=== PATIENT | female | born 1995 | race African-American/Black ===

== ENCOUNTER 2017-11-06 05:36 | Day surgery (SDC) | payer MEDICAID ==
[2017-11-06 06:06] LABS: HEMATOCRIT 39.4 % (36.0-47.0); HEMOGLOBIN 13.2 g/dL (12.0-15.5); HGB HCT DIFFERENCE 0.2; MEAN CORPUSCULAR HEMOGLOBIN 27.9 pg (27.0-33.4); MEAN CORPUSCULAR HGB CONC 33.5 g/dL (32.0-36.0); MEAN CORPUSCULAR VOLUME 83 fl (80-97); RED BLOOD COUNT 4.72 10^6/uL (3.72-5.28); RED CELL DISTRIBUTION WIDTH 14.8 % (11.5-14.0); WHITE BLOOD COUNT 6.5 10^3/uL (4.0-10.5)
[2017-11-06 06:22] LABS: APPEARANCE,URINE SLIGHTLY-CLOUDY; BILIRUBIN,URINE NEGATIVE (NEGATIVE); GLUCOSE, URINE NEGATIVE (NEGATIVE); KETONES,URINE TRACE mg/dL (NEGATIVE); LEUKOCYTE ESTERASE,URINE TRACE (NEGATIVE); NITRITE,URINE NEGATIVE (NEGATIVE); PROTEIN,URINE 30 mg/dL (NEGATIVE); UROBILINOGEN,URINE NEGATIVE mg/dL (<2.0)
[2017-11-06] MEDS ORDERED: FENTANYL CITRATE INJ/PF 100 MCG/2 ML AMPUL ONE (06:46)
[2017-11-06] MEDS ORDERED: ONDANSETRON HCL INJ/PF 4 MG/2 ML SDV ONE (06:47)
[2017-11-06] MEDS ORDERED: MIDAZOLAM 2 MG/2 ML INJ ONE (06:47)
[2017-11-06] MEDS ORDERED: PROPOFOL INJ 200 MG/20 ML VIAL IV ONE (06:48)
[2017-11-06] MEDS ORDERED: FENTANYL CITRATE INJ/PF 100 MCG/2 ML AMPUL IV PRN ×3 (08:00)
[2017-11-06] MEDS ORDERED: MORPHINE SULFATE 10 MG/ML INJ IV PRN (08:00)
[2017-11-06] MEDS ORDERED: PROMETHAZINE HCL INJ 25 MG/1 ML VIAL IV PRN (08:00)
[2017-11-06] MEDS ORDERED: DIPHENHYDRAMINE HCL 50 MG/ML VIAL IV PRN (08:00)
--- NOTE | 2017-11-06 08:11 | Operative Report ---
Operative Report DATE OF SURGERY: 11/06/17 PREOPERATIVE DIAGNOSIS: Missed AB POSTOPERATIVE DIAGNOSIS: Same OPERATION: Suction D&C SURGEON: CLAUDINE QUIÑONEZ ANESTHESIA: GA TISSUE REMOVED OR ALTERED: Uterine contents COMPLICATIONS: None ESTIMATED BLOOD LOSS: 20 cc INTRAOPERATIVE FINDINGS: Sound 10 cm PROCEDURE: Patient requests a suction D&C. She was taken to the OR and placed in supine position. General anesthesia was induced. She is placed in dorsolithotomy position using Macario stirrups. Her abdomen perineum and vagina were prepared and draped in sterile fashion. Her bladder was drained with a red rubber catheter. A weighted speculum was placed in the anterior lip of the cervix was grasped with a tenaculum. Uterus sounded 10 cm before and 8 cm after the case. The cervix was gently dilated. A size 10 suction curette was used to evacuate the uterine contents. Exploration of the uterus with the sharp curette revealed no retained products. All instruments were removed she is placed back in supine position taken recovery room in stable condition. End of dictation
[2017-11-06] MEDS ORDERED: KETOROLAC TROMETHAMINE INJ/PF 30 MG/1 ML SDV IV PRN (08:43)
[2017-11-06 09:57] VITALS: BP 124/69
[2017-11-06] MEDS ORDERED: SUCCINYLCHOLINE CHLORIDE INJ 200 MG/10 ML VIAL ONE (13:08)
== END 2017-11-06 09:55 | disposition home or self-care (01) ==
LOC: OROUT 05:36
PROVIDERS: ATTEND Obstetrics & Gynecology
PROC: 10D17ZZ Extraction of Products of Conception, Retained, Via Natural or Artificial Opening (ICD-10-PCS; principal; 2017-11-06 07:30)
DX: O02.1 Missed abortion (principal); E66.9 Obesity, unspecified; Z68.35 Body mass index [BMI] 35.0-35.9, adult
CPT/HCPCS: 86900; 86901; 85027; 81001; 88305 ×2; 59820; J2250; J3010; J1885; J0330; J2405; J2704; 1965

== ENCOUNTER 2018-03-27 23:10 | Emergency (ER) | payer MEDICAID ==
[2018-03-27 23:51] VITALS: BP 128/78
--- NOTE | 2018-03-28 02:36 | ER Document Report ---
ED General - General Chief Complaint: Abdominal Pain Stated Complaint: ABDOMINAL PAIN Time Seen by Provider: 03/28/18 01:58 Notes: 22-year-old female patient. History of deafness. Recent reflux and getting worked up by Dr. kamilla sewell with gastroenterology. Had an esophageal device placed. States that it hurts. She was under the impression that the device was supposed to pass through her GI tract and be displaced in her stool. TRAVEL OUTSIDE OF THE [place] IN LAST 30 DAYS: No - HPI Onset: Yesterday - Related Data Allergies/Adverse Reactions: No Known Allergies Allergy (Unverified 04/25/11 11:09) Past Medical History - General Information source: Parent - Social History Smoking Status: Unknown if Ever Smoked Cigarette use (# per day): No Frequency of alcohol use: None Drug Abuse: None Lives with: Family Family History: Reviewed & Not Pertinent Patient has suicidal ideation: No Patient has homicidal ideation: No - Past Medical History Cardiac Medical History: Denies: Hx Coronary Artery Disease, Hx Heart Attack, Hx Hypertension Pulmonary Medical History: Denies: Hx Asthma, Hx Bronchitis, Hx COPD, Hx Pneumonia Neurological Medical History: Denies: Hx Cerebrovascular Accident, Hx Seizures Renal/ Medical History: Denies: Hx Peritoneal Dialysis Musculoskeltal Medical History: Denies Hx Arthritis Past Surgical History: Denies: Hx Hysterectomy, Hx Pacemaker - Immunizations Hx Diphtheria, Pertussis, Tetanus Vaccination: Yes Review of Systems - Review of Systems Constitutional: No symptoms reported EENT: See HPI, Throat pain, Difficulty swallowing Cardiovascular: No symptoms reported Respiratory: No symptoms reported Gastrointestinal: No symptoms reported Genitourinary: No symptoms reported Female Genitourinary: No symptoms reported Musculoskeletal: No symptoms reported Skin: No symptoms reported Hematologic/Lymphatic: No symptoms reported Neurological/Psychological: No symptoms reported Physical Exam - Vital signs Vitals: Temp Pulse Resp BP Pulse Ox 98.4 F 71 18 128/78 H 97 03/27/18 23:47 03/27/18 23:47 03/27/18 23:47 03/27/18 23:47 03/27/18 23:47 Interpretation: Normal - General General appearance: Appears well, Alert - HEENT Head: Normocephalic, Atraumatic Eyes: Normal Pupils: PERRL - Respiratory Respiratory status: No respiratory distress Chest status: Nontender Breath sounds: Normal Chest palpation: Normal - Cardiovascular Rhythm: Regular Heart sounds: Normal auscultation Murmur: No - Abdominal Inspection: Normal Distension: No distension Bowel sounds: Normal Tenderness: Nontender Organomegaly: No organomegaly - Back Back: Normal, Nontender - Extremities General upper extremity: Normal inspection, Nontender, Normal color, Normal ROM , Normal temperature General lower extremity: Normal inspection, Nontender, Normal color, Normal ROM , Normal temperature, Normal weight bearing. No: Ana's sign - Neurological Neuro grossly intact: Yes Cognition: Normal Orientation: AAOx4 [place] Coma Scale Eye Opening: Spontaneous [place] Coma Scale Verbal: Oriented [place] Coma Scale Motor: Obeys Commands [place] Coma Scale Total: 15 Sensory: Normal - Psychological Associated symptoms: Normal affect, Normal mood - Skin Skin Temperature: Warm Skin Moisture: Dry Skin Color: Normal Course - Re-evaluation Re-evalutation: 03/28/18 03:54 Patient has an appropriately placed device in her esophagus according to Dr. Davies states that if she is very uncomfortable he will remove it today. Instructed her to go to his [place] office. Nothing further he recommends at this time. Will DC. - Vital Signs Vital signs: Temp Pulse Resp BP Pulse Ox 98.4 F 71 18 128/78 H 97 03/27/18 23:47 03/27/18 23:47 03/27/18 23:47 03/27/18 23:47 03/27/18 23:47 Discharge - Discharge Clinical Impression: Esophageal foreign body Qualifiers: Encounter type: initial encounter Qualified Code(s): T18.108A - Unspecified foreign body in esophagus causing other injury, initial encounter Disposition: HOME, SELF-CARE Additional Instructions: You have a medically implanted esophageal foreign body. Your doctor will see you today in his [facility] office if you present to his office at 8 :00. Please do not eat or drink anything until you see him today. If you are unable to follow-up with him today as instructed then please make an appointment with him for follow-up. Forms: Parent Work Note Referrals: BERTHA CASTELLANO MD [Primary Care Provider] - Follow up as needed
--- NOTE | 2018-03-28 03:51 | RADIOLOGY REPORT (SQ) ---
EXAM DESCRIPTION: CHEST SINGLE VIEW CLINICAL HISTORY: feels like capsule EGD device stuck in throat COMPARISON: None. FINDINGS: Single frontal view of the chest. The cardiomediastinal silhouette has normal size and contour. No consolidation, pneumothorax, or pleural effusion. Electronic device overlying the expected region of the midesophagus. No displaced rib fractures identified. Upper abdominal soft tissues are unremarkable. IMPRESSION: 1. Electronic device overlying the expected region of the midesophagus.
== END 2018-03-28 04:05 | disposition home or self-care (01) ==
LOC: ER 23:10
DX: T18.108A Unspecified foreign body in esophagus causing other injury, initial encounter (principal); R10.9 Unspecified abdominal pain; H91.90 Unspecified hearing loss, unspecified ear; X58.XXXA Exposure to other specified factors, initial encounter
CPT/HCPCS: 71045; 99284